=== PATIENT | female | born 1965 | race Two or more races ===

== ENCOUNTER 2018-04-18 08:14 | Inpatient (IN) | payer OTHER ==
[2018-04-18 08:26] VITALS: BMI 29.2
[2018-04-18] MEDS ORDERED: ACETAMINOPHEN 1000 MG/100 ML VIAL (NON FORMULARY) IVPB ONE (09:08)
--- NOTE | 2018-04-18 09:08 | PDOC ---
History of Present Illness - General Chief Complaint: Weakness Stated Complaint: TACHYCARDIA Time Seen by Provider: 04/18/18 08:25 History Source: Patient Exam Limitations: No Limitations - History of Present Illness Initial Comments: 04/18/18 09:02 Patient is a 53 year old female with a PMHx of HTN, HLD, Rheumatoid Arthritis, Hemorrhoids, S/P Right knee replacement (02/01/18), S/P Right knee debridement ( 04/05/18) due to infected wound of right knee (positive staph epi) w/ PICC line on IV Vanco and Rocephin who presented to the ED complaining of feeling fatigue and short of breath this morning. Patient reports she woke up this morning, had her coffee, and then all of a sudden felt extremely fatigued and couldn't "catch my breath." She took her temperature orally and reports it was 101.0 F and then took her pulse, which she reported was 123 BPM. A few minutes later, she reports getting up and almost passed out, which prompted her to call 911. Upon my initial encounter patient denies any current shortness of breath. However, she does report having right flank pain associated with frequency, which started two days ago and has not improved, despite being on IV antibiotics. Patient reports flank pain as dull, nonradiating, intermittent, exacerbated when sitting down and alleviated when standing up and moving around. Patient started IV abx 04/05/18 for a total of 6 weeks. Reports she had her vanco levels done last week, which was 11 and is suppose to have her Antibiotics changed today to Oxicillin and Rifampin. Her ID physician is Dr. Kennedy at [facility]. Patient denies any pain, drainage, erythema to the right knee. Reports that today she was suppose to see her Orthopedic for stable removal, Dr. Roly Middleton at [facility]. Patient otherwise denies any dysuria, hematuria, melena, hematochezia, hematemesis, hemoptysis, chest pain, LOC, headaches, diarrhea, constipation, abdominal pain. Patient denies immobility, anaebolic steroid use, history of blood disorders or coagulapathy. PCP: Dr. Yip Pickle Maker: Dr. Betancourt Orthopedic Surgeon: Dr. Roly Middleton ([phone]) ID: Dr. Arias at [facility] ([phone]) PMHx: HTN HLD Rheumatoid Arthritis (On prednisone) External Hemorrhoids PSHx: Right knee replacement (02/01/18) at [facility] Right Knee debridement (04/05/18) at [facility] 3 C-sections Social Hx: Works as an alumni relations coordinator Lives with her 3 kids Denies alcohol use Denies drug use Denies smoking history Family Hx: Mother- DM, HTN, hypothyroidism Medications: Losartan 50mg daily Amlodipine 5mg daily Toprol 50mg daily Simvastatin 20mg daily Zoloft 50mg daily Prednisone 2.5mg every other day Pepcid daily Meloxicam- daily for the past two weeks IV vancomycin 1500mg Q12H IV Rocephin 2mg daily ASA 81mg BID Allergies: Shellfish 04/18/18 13:35 04/18/18 14:29 Past History - Travel Traveled outside of the country in the last 30 days: No Close contact w/someone who was outside of country & ill: No - Past Medical History Allergies/Adverse Reactions: Allergies Allergy/AdvReac Type Severity Reaction Status Date / Time shellfish derived Allergy Verified 04/18/18 08:23 Home Medications: Ambulatory Orders Amlodipine Besylate 5 mg PO DAILY 04/18/18 Aspirin 81 mg PO BID 04/18/18 Ceftriaxone [Rocephin 2Gm Ivpb (Pre-Docked)] 2 gm IVPB DAILY 04/18/18 Losartan Potassium 50 mg PO DAILY 04/18/18 Meloxicam 04/18/18 Metoprolol Succinate [Toprol Xl] 50 mg PO HS 04/18/18 Sertraline HCl [Zoloft -] 50 mg PO DAILY 04/18/18 Simvastatin 20 mg PO HS 04/18/18 Vancomycin/0.9 % Sod Chloride [Vanco 1.5 gm/150 ml-0.9% NaCl] 1.5 gm IV BID predniSONE [Deltasone -] 2.5 mg PO ASDIR 04/18/18 COPD: No HTN: Yes Other medical history: Rheumaoid Arthritis - Reproductive History Is Patient Now?: No - Suicide/Smoking/Psychosocial Hx Smoking History: Never smoked Review of Systems - Review of Systems Constitutional: Yes: Fever, Weakness HEENTM: No: Blurred Vision, Hearing Loss, Throat Pain Cardiac (ROS): Yes: Lightheadedness, Palpitations. No: Chest Pain, Irregular Heart Rate, Syncope, Chest Tightness ABD/GI: No: Abdominal Distended, Abd. Pain w/ defecation, Blood Streaked Bowels , Constipated, Diarrhea, Nausea, Rectal Bleeding, Vomiting : Yes: See HPI, Frequency Musculoskeletal: No: Back Pain, Joint Swelling, Muscle Weakness, Joint Stiffness Neurological: No: Headache, Numbness, Paresthesia, Unsteady Gait Psychiatric: No: Anxiety, Depression, Frequent Crying Hematologic/Lymphatic: No: Blood Clots, Easy Bleeding, Easy Bruising, Bleeding Diathesis, Swollen Glands *Physical Exam - Vital Signs Last Vital Signs Temp Pulse Resp BP Pulse Ox 101.1 F H 123 H 16 136/88 99 04/18/18 08:39 04/18/18 08:23 04/18/18 08:23 04/18/18 08:23 04/18/18 08:23 - Physical Exam General Appearance: Yes: Nourished, Appropriately Dressed HEENT: positive: JONNATHAN, Normal ENT Inspection, Normal Voice, TMs Normal, Pharynx Normal. negative: Pale Conjunctivae, Tonsillar Exudate, Tonsillar Erythema, Nasal Congestion, Rhinorrhea, Sinus Tenderness Neck: positive: Tender, Trachea midline, Rigid, Supple. negative: Carotid bruit , Decreased range of motion Respiratory/Chest: positive: Lungs Clear, Normal Breath Sounds. negative: Crackles, Rales, Rhonchi, Stridor, Wheezing, Dullness Cardiovascular: positive: Regular Rhythm, S1, S2, Tachycardia. negative: Edema , JVD, Murmur Vascular Pulses: Dorsalis-Pedis (R): 2+, Doralis-Pedis (L): 2+ Female Pelvic Exam: negative: discharge, lesions, vaginal bleeding Gastrointestinal/Abdominal: positive: Normal Bowel Sounds, Soft. negative: Decreased BS, Distended, Guarding, Rebound, Tenderness, Hepatomegaly, Spleenomegaly Rectal Exam: positive: normal exam, normal rectal tone, hemorrhoids (external ) Musculoskeletal: positive: Normal Inspection Extremity: positive: Normal Range of Motion, Swelling, Other (Nonpitting edema of right knee, Vertical surgical incision with briana, no drainage, erythema, redness. C/D/I surgical dressing. LEft arm PICC in place C/D/I with no drainage , erythema, or swelling ). negative: Coldness, Cyanosis, Delayed Capillary Refill, Calf Tenderness, Erythema Neurologic: positive: butt sawyer II-XII NML intact, Fully Oriented, Alert, Normal Mood/ Affect, Normal Response, Motor Strength 5/5. negative: Facial Droop, Numbness, Sensory Deficit Moderate Sedation - Procedure Monitoring Vital Signs: Procedure Monitoring Vital Signs Temperature 101.1 F H 04/18/18 08:39 Pulse Rate 123 H 04/18/18 08:23 Respiratory Rate 16 04/18/18 08:23 Blood Pressure 136/88 04/18/18 08:23 O2 Sat by Pulse Oximetry (%) 99 04/18/18 08:23 ED Treatment Course - LABORATORY CBC & Chemistry Diagram: 04/18/18 08:56 04/18/18 08:56 - RADIOLOGY Radiology Studies Ordered: Category Date Time Status CHEST X-RAY PORTABLE* [RAD] Stat Radiology 04/18/18 08:59 Ordered Medical Decision Making - Medical Decision Making 04/18/18 09:34 Patient presents with Urgency, fevers, Tachycardia and meets SIRS criteria in the setting of PICC line placement and Right knee replacement with surgical briana in place. However, patient denies any discharge, pain or tenderness of both left upper arm and right knee surgical site. Differential Diagnosis include but not limited to Post op Right knee abscess/DVT , Post op pneumonia, PE, PICC line infection, UTI. Sepsis protocol initiated -Chest X-ray ordered to rule out PNA -Duplex of Right leg to rule out collection/DVT -CBC, CMP, Lactic ordered -U/A, Urine and blood cultures -Tylenol IV -1 L of IV NS -Vancomycin levels ordered 04/18/18 10:04 Urine negative CBC with normal WBC CMP unremarkable Lactic 2.4 Chest X-Ray negative for any acute pathology Duplex of right leg pending Will place call to ID and Orthopedic surgeon once Duplex is back 04/18/18 11:17 Duplex pending Additional 1L IV NS ordered 04/18/18 12:02 Duplex negative for DVT, thrombophlebitis or abscess Contacted Orthopedic Surgeon, Kane Eugene, who recommended to discharge patient and have come to his office today Contacted ID physician, Dr. Arias and left a message Awaiting Dr. Arias's call back 04/18/18 13:[address] Arias, ID physician. Reports that patient has blood cultures positive for staph epi and was planning on changing her IV Abx due to resistance from her current Regimen. He wants patient to have Oxicillin 2gm Q4H. He already sent in a prescription to her house for the medication with a CAAD. Patient reports she feels uncomfortable going home due to her fevers and tachycardia. Will give first dose of Oxicillin [employer] sent out to [facility] admitting Awaiting call back 04/18/18 14:[address] Ugalde who will come and evaluate patient Spoke to Dr. Arias again and told him that we do not have Oxicillin in house but we have Nafcillin. He is fine with Naficillin. Patient is to also start with Rifampin 300mg BID IVPB 04/18/18 14:36 One time dose of Naficillin 2gm ordered Patient accepted to [facility] *DC/Admit/Observation/Transfer Diagnosis at time of Disposition: Sepsis, Bacteremia - Discharge Dispostion Decision to Admit order: Yes - Referrals Referrals: Magdy Yip MD [Primary Care Provider] - - Patient Instructions - Post Discharge Activity
[2018-04-18] MEDS ORDERED: SODIUM CHLORIDE 1,000 ML IV STA ×2 (09:09→11:13)
[2018-04-18] MEDS ORDERED: ACETAMINOPHEN INJECTION 100 ML IVPB ONE (09:09)
[2018-04-18 09:14] LABS: BASO % 0.4 % (0-2.0); HEMATOCRIT 31.2 % (32.4-45.2); HEMOGLOBIN 10.3 GM/dL (10.7-15.3); LYMPH % 11.5 % (8-40); MCH 26.2 pg (25.7-33.7); MCHC 33.1 g/dl (32.0-36.0); MEAN CELL VOLUME 79.2 fl (80-96); MEAN PLT VOLUME 8.8 fl (7.5-11.1); MONO % 18.2 % (3.8-10.2); NEUT % 65.9 % (42.8-82.8); PLATELET COUNT 204 K/MM3 (134-434); RBC 3.95 M/mm3 (3.60-5.2); RDW 14.7 % (11.6-15.6); WHITE BLOOD COUNT 4.5 K/mm3 (4.0-10.0)
[2018-04-18 09:15] LABS: URINE APPEARANCE CLEAR; URINE BILIRUBIN NEGATIVE (<2.0 mg/dL); URINE COLOR COLORLESS; URINE GLUCOSE (UA) NEGATIVE (NEGATIVE); URINE KETONE NEGATIVE (NEGATIVE); URINE LEUK ESTERASE NEGATIVE (NEGATIVE); URINE NITRITE NEGATIVE (NEGATIVE); URINE PROTEIN NEGATIVE (NEGATIVE); URINE UROBILINOGEN NEGATIVE mg/dL (0.2-1.0)
[2018-04-18 09:30] LABS: INR 1.11 (0.83-1.09); PROTHROMBIN TIME (PATIENT) 13.1 SEC (9.7-13.0)
--- NOTE | 2018-04-18 09:31 | PDOC ---
Attending Attestation - Resident Resident Name: Hue Cruz - ED Attending Attestation I have performed the following: I have examined & evaluated the patient, The case was reviewed & discussed with the resident, I agree w/resident's findings & plan - HPI HPI: 04/18/18 09:27 53-year-old female history of right knee surgery in January status post washout on 04/05 currently on IV antibiotics via PICC line at home presents with fever and generalized weakness this morning. Only localizing symptoms are urinary frequency and urgency, has had vaginal candidiasis symptoms of last few days, otherwise denies any cardiopulmonary complaints and reports her right knee is looking better without swelling or redness or discharge. Patient was actually scheduled to have a change in her antibiotic regimen today with her ID specialist at [facility], presenting secondary to the fever. - Physicial Exam PE: 04/18/18 09:28 Rectal fever 101.1, tachycardia to 120, blood pressure otherwise normal with normal O2 sat Well-appearing and conversant, no acute distress Heart is regular tachycardia, lungs are clear Abdomen benign, no CVA tenderness Left upper extremity PICC line site is clean/dry/intact, neurovascularly intact Right lower extremity incision clean/dry/intact, soft tissue swelling but no obvious joint effusion or erythema or warmth, full range of motion and neurovascularly intact - Critical Care Time Total Critical Care Time: 30 Critical Care Statement: The care of this patient involved high complexity decision making to prevent further life threatening deterioration of the patient 's condition and/or to evaluate & treat vital organ system(s) failure or risk of failure. - Medical Decision Making 04/18/18 09:29 53-year-old female currently on antibiotics in the setting of right knee infection presents with SIRS - fever and tachycardia, symptoms localized to urinary tract, also has indwelling catheter which does not look infected externally. Blood pressure within normal limits, exam otherwise not localizing. Sepsis protocol initiated IV Tylenol for fever, awaiting workup to continue antibiotics as she currently has vancomycin and ?Rocephin on board Discuss disposition with patient's primary team at [facility] Heart Score/ECG Review #1 ECG reviewed & interpreted by me at: 09:25 General ECG Interpretation: Sinus Rhythm (tachy at 113), Normal Intervals (qtc 452), No acute ischemic changes
[2018-04-18 09:32] LABS: ACTIVATED PTT 28.8 SECONDS (25.2-36.5)
[2018-04-18 09:45] LABS: ALBUMIN 3.7 g/dl (3.4-5.0); ALK PHOS 101 U/L (45-117); ANION GAP 9 MMOL/L (8-16); BILIRUBIN,TOTAL 0.4 mg/dL (0.2-1); BLOOD UREA NITROGEN 9 mg/dL (7-18); CALCIUM 8.4 mg/dL (8.5-10.1); CHLORIDE 107 mmol/L (98-107); CO2 24 mmol/L (21-32); CREATININE 0.7 mg/dL (0.55-1.3); GLUCOSE,RANDOM 121 mg/dL (74-106); POTASSIUM 3.7 mmol/L (3.5-5.1); SGOT/AST 17 U/L (15-37); SGPT/ALT 23 U/L (13-61); SODIUM 140 mmol/L (136-145); TOT PROT 7.1 g/dl (6.4-8.2)
--- NOTE | 2018-04-18 09:47 | EKG ---
Test Reason : Blood Pressure : / mmHG Vent. Rate : 113 BPM Atrial Rate : 113 BPM P-R Int : 146 ms QRS Dur : 082 ms QT Int : 330 ms P-R-T Axes : 055 038 030 degrees QTc Int : 452 ms SINUS TACHYCARDIA LOW VOLTAGE QRS BORDERLINE ECG WHEN COMPARED WITH ECG OF 21-SEP-2005 13:58, NO SIGNIFICANT CHANGE WAS FOUND Confirmed by GHAZAL LEHMAN MD ([id number]) on 04/18/2018 9:46:57 AM Referred By: Confirmed By:GHAZAL LEHMAN MD
[2018-04-18 09:49] LABS: VENOUS PH 7.42 (7.32-7.42); VENOUS PO2 36.4 mmHg (28-48)
[2018-04-18] MEDS ORDERED: NAFCILLIN - 2 GM in DEXTROSE 5%-WATER - 100 ML IVPB ONE (14:20)
[2018-04-18] MEDS ORDERED: predniSONE 2.5 MG TABLET PO SCH (15:30)
[2018-04-18] MEDS ORDERED: SODIUM CHLORIDE 1,000 ML IV SCH (15:30)
--- NOTE | 2018-04-18 16:15 | HP ---
CHIEF COMPLAINT:Fever, shortness of breath PCP:Dr. Yip HISTORY OF PRESENT ILLNESS: Patient is a 53 year old female with past medical history of HTN, HLD, rheumatoid arthritis, hemorrhoids, s/p R knee replacement surgery (02/01/18), s/ p R knee debridement and washout (04/05/18) due to infected wound of R knee, presented with a 2-day history of fever and shortness of breath. Patient reported feeling unwell, took her temperature this morning which was 101F and checked her pulse rate which was 123. She called his son to bring her to [facility], but prior to leaving the house, patient became lightheaded and "almost passed out". They then call 911, who brought the patient to the ED. Patient is seen at [facility] for her R knee replacement. She was recently admitted for R knee wound and underwent debridement and washout (04/05/18). Wound culture was positive for Staph epidermidis. She was started on Vancomycin and Rocephin, and sent home with a PICC line (04/07/18), to continue the antibiotics for 6 weeks. Three days ago, her infectious disease doctor called her to inform her that culture and sensitivity results were available and her antibiotics were to be switched to Oxacillin and Rifampin today. She also has a scheduled follow-up with the Orthopedic surgeon for removal of sutures. Patient also reported chills, vaginal pruritus and urinary frequency. Denies pain, redness or swelling of the R knee wound and the PICC line. Denies cough, rhinorrhea, nasal congestion, sore throat, headache, chest pain, palpitations, abdominal pain, diarrhea, constipation, dysuria or vaginal discharge. ER course was notable for: (1)IV Tylenol, IV NS bolus, IV Nafcillin 2g (2)Lactic acid 2.4 --> 0.8 (3)Vanc 11.7 Recent Travel:No PAST MEDICAL HISTORY: HTN HLD rheumatoid arthritis hemorrhoids PAST SURGICAL HISTORY: R knee replacement surgery (02/01/18) R knee debridement and washout (04/05/18) 3 C-sections Social History: Smoking:denies Alcohol:denies Drugs: denies Family History: Mother - HTN, Hypothyroid, HLD, DM Allergies shellfish derived Allergy (Verified 04/18/18 08:23) HOME MEDICATIONS: Home Medications Medication Instructions Recorded Amlodipine Besylate 5 mg PO DAILY 04/18/18 Aspirin 81 mg PO BID 04/18/18 Ceftriaxone [Rocephin 2Gm Ivpb 2 gm IVPB DAILY 04/18/18 (Pre-Docked)] Losartan Potassium 50 mg PO DAILY 04/18/18 Meloxicam 04/18/18 Metoprolol Succinate [Toprol Xl] 50 mg PO HS 04/18/18 Sertraline HCl [Zoloft -] 50 mg PO DAILY 04/18/18 Simvastatin 20 mg PO HS 04/18/18 Vancomycin/0.9 % Sod Chloride 1.5 gm IV BID 04/18/18 [Vanco 1.5 gm/150 ml-0.9% NaCl] predniSONE [Deltasone -] 2.5 mg PO ASDIR 04/18/18 REVIEW OF SYSTEMS CONSTITUTIONAL: Absent: fever, chills, diaphoresis, generalized weakness, malaise, loss of appetite, weight change HEENT: Absent: rhinorrhea, nasal congestion, throat pain, throat swelling, difficulty swallowing, mouth swelling, ear pain, eye pain, visual changes CARDIOVASCULAR: Absent: chest pain, syncope, palpitations, irregular heart rate, lightheadedness , peripheral edema RESPIRATORY: Absent: cough, shortness of breath, dyspnea with exertion, orthopnea, wheezing, stridor, hemoptysis GASTROINTESTINAL: Absent: abdominal pain, abdominal distension, nausea, vomiting, diarrhea, constipation, melena, hematochezia GENITOURINARY: Absent: dysuria, frequency, urgency, hesitancy, hematuria, flank pain, genital pain MUSCULOSKELETAL: Absent: myalgia, arthralgia, joint swelling, back pain, neck pain SKIN: Absent: rash, itching, pallor HEMATOLOGIC/IMMUNOLOGIC: Absent: easy bleeding, easy bruising, lymphadenopathy, frequent infections ENDOCRINE: Absent: unexplained weight gain, unexplained weight loss, heat intolerance, cold intolerance NEUROLOGIC: Absent: headache, focal weakness or paresthesias, dizziness, unsteady gait, seizure, mental status changes, bladder or bowel incontinence PSYCHIATRIC: Absent: anxiety, depression, suicidal or homicidal ideation, hallucinations. PHYSICAL EXAMINATION Vital Signs - 24 hr 04/18/18 04/18/18 04/18/18 08:22 08:23 08:39 Temperature 99.1 F 101.1 F H Pulse Rate 123 H Respiratory 16 Rate Blood Pressure 136/88 O2 Sat by Pulse 100 99 Oximetry (%) GENERAL: Awake, alert, and fully oriented, in no acute distress. HEAD: Normal with no signs of trauma. EYES: PERRLA, EOMI, sclera anicteric, conjunctiva clear. EARS, NOSE, THROAT: Ears normal, nares patent, oropharynx clear without exudates. Dry mucous membranes. NECK: Normal range of motion, supple without lymphadenopathy, JVD, or masses. LUNGS: Breath sounds equal, clear to auscultation bilaterally. HEART: Regular rate and rhythm, normal S1 and S2 without murmur, rub or gallop. ABDOMEN: Soft, nontender, not distended, normoactive bowel sounds, no guarding, no rebound, no masses. MUSCULOSKELETAL: Normal range of motion at all joints. No bony deformities or tenderness. No CVA tenderness. UPPER EXTREMITIES: 2+ pulses, warm, well-perfused. No cyanosis. No clubbing. No peripheral edema. LUE: +PICC line, no redness or swelling. LOWER EXTREMITIES: 2+ pulses, warm, well-perfused. No calf tenderness. No peripheral edema. RLE: +clean, dry, intact wound at the anterior knee. NEUROLOGICAL: Cranial nerves II-XII intact. Motor strength 5/5 on all extremities, sensation intact. Normal speech. Normal gait. PSYCHIATRIC: Cooperative. Good eye contact. Appropriate mood and affect. SKIN: Warm, dry, normal turgor, no rashes or lesions noted, normal capillary refill. Laboratory Results - last 24 hr 04/18/18 04/18/18 04/18/18 08:56 08:56 08:56 WBC 4.5 RBC 3.95 Hgb 10.3 L Hct 31.2 L MCV 79.2 L MCH 26.2 MCHC 33.1 RDW 14.7 Plt Count 204 MPV 8.8 Absolute Neuts (auto) 3.0 Neutrophils % 65.9 Lymphocytes % 11.5 Monocytes % 18.2 H Eosinophils % 4.0 Basophils % 0.4 Nucleated RBC % 0 PT with INR 13.10 H INR 1.11 H PTT (Actin FS) 28.8 VBG pH POC VBG pCO2 POC VBG pO2 Mixed VBG HCO3 Sodium 140 Potassium 3.7 Chloride 107 Carbon Dioxide 24 Anion Gap 9 BUN 9 Creatinine 0.7 Creat Clearance w eGFR > 60 Random Glucose 121 H Lactic Acid Calcium 8.4 L Total Bilirubin 0.4 AST 17 ALT 23 Alkaline Phosphatase 101 Creatine Kinase 38 Troponin I < 0.02 Total Protein 7.1 Albumin 3.7 Urine Color Urine Appearance Urine pH Ur Specific [place] Urine Protein Urine Glucose (UA) Urine Ketones Urine Blood Urine Nitrite Urine Bilirubin Urine Urobilinogen Ur Leukocyte Esterase Random Vancomycin 04/18/18 04/18/18 04/18/18 08:56 08:56 09:36 WBC RBC Hgb Hct MCV MCH MCHC RDW Plt Count MPV Absolute Neuts (auto) Neutrophils % Lymphocytes % Monocytes % Eosinophils % Basophils % Nucleated RBC % PT with INR INR PTT (Actin FS) VBG pH 7.42 POC VBG pCO2 38.0 POC VBG pO2 36.4 Mixed VBG HCO3 24.0 Sodium Potassium Chloride Carbon Dioxide Anion Gap BUN Creatinine Creat Clearance w eGFR Random Glucose Lactic Acid 2.4 H* Calcium Total Bilirubin AST ALT Alkaline Phosphatase Creatine Kinase Troponin I Total Protein Albumin Urine Color Colorless Urine Appearance Clear Urine pH 7.0 Ur Specific [place] 1.001 L Urine Protein Negative Urine Glucose (UA) Negative Urine Ketones Negative Urine Blood Negative Urine Nitrite Negative Urine Bilirubin Negative Urine Urobilinogen Negative Ur Leukocyte Esterase Negative Random Vancomycin 04/18/18 04/18/18 09:36 12:36 WBC RBC Hgb Hct MCV MCH MCHC RDW Plt Count MPV Absolute Neuts (auto) Neutrophils % Lymphocytes % Monocytes % Eosinophils % Basophils % Nucleated RBC % PT with INR INR PTT (Actin FS) VBG pH POC VBG pCO2 POC VBG pO2 Mixed VBG HCO3 Sodium Potassium Chloride Carbon Dioxide Anion Gap BUN Creatinine Creat Clearance w eGFR Random Glucose Lactic Acid 0.8 Calcium Total Bilirubin AST ALT Alkaline Phosphatase Creatine Kinase Troponin I Total Protein Albumin Urine Color Urine Appearance Urine pH Ur Specific [place] Urine Protein Urine Glucose (UA) Urine Ketones Urine Blood Urine Nitrite Urine Bilirubin Urine Urobilinogen Ur Leukocyte Esterase Random Vancomycin 11.7 L ASSESSMENT/PLAN: Patient is a 53 year old female with past medical history of HTN, HLD, rheumatoid arthritis, hemorrhoids, s/p R knee replacement surgery (02/01/18), s/ p R knee debridement and washout (04/05/18) due to infected wound of R knee, presented with a 2-day history of fever and shortness of breath. #Sepsis likely 2/2 RLE wound vs prosthetic joint -As per Dr. Hijaz, she was able to contact Dr. Arias (ID) and was told that wound cultures were positive and plan to switch Vanc/Rocephin to Oxacillin 2g q4h and Rifampin 300mg BID. Oxacillin not available at the pharmacy, patient started on IV Nafcillin 2g q4h. -Follow-up blood and wound cultures. -ID (Dr. Lozoya) consulted. Recommendations appreciated. -IV Nafcillin 2gm q4h -IV Rifampin 300mg IV BID -IV Levaquin 500mg daily to cover for possible UTI as patient also presents with urinary frequency -Ortho (Dr. Kilgore) consulted. -IV fluids -Tylenol 650mg PRN -Keep wound clean and dry. -Echocardiogram to rule out PE/endocarditis. -Flu swab -CXR: clear lungs. No acute pathology. -Duplex (R leg) - no DVT -Will order Duplex of L leg #HTN: controlled -Continue Losartan 50mg daily -Amlodipine 5mg daily -Metoprolol 50 mg Po HS #HLD: chronic -Continue Simvastatin 20 mg PO HS #Anxiety -Continue Zoloft 50mg daily #Rheumatoid Arthritis: controlled -Continue Prednisone 2.5 mg every other day -Pepcid not available at the pharmacy -Will switch to Zantac 150mg daily for now -Tylenol 650mg PRN for pain #FEN -IV NS @ 100ml/hr -electrolytes wnl, routine bmp monitoring -Sodium-controlled diet #Prophylaxis -Lovenox 40mg sq daily -will hold ASA 81mg BID for now #Disposition -Full code -Admit to med-surg Visit type - Emergency Visit Emergency Visit: Yes ED Registration Date: 04/18/18 Care time: The patient presented to the Emergency Department on the above date and was hospitalized for further evaluation of their emergent condition. - New Patient This patient is new to me today: Yes Date on this admission: 04/18/18 - Critical Care Critical Care patient: No
--- NOTE | 2018-04-18 17:14 | PN ---
Teaching Attending Note Name of Resident: Linnea Levin ATTENDING PHYSICIAN STATEMENT I saw and evaluated the patient. I reviewed the resident's note and discussed the case with the resident. I agree with the resident's findings and plan as documented. SUBJECTIVE: CC: fever and feeling tired HPI: 53 y/o lady with h/o HTN, RA, HLp, hemorrhoids, R knee replacement on , and washout on 04/05 for infection . she presented with fever . She has not been feeling well for 2 days, gets SOB with exertion, has no CP or cough. no dysuria but noted last 2 days she has been urinating frequently. No diarrhea. she did not notice any increased pain in R knee. she reports sore throat , and mouth sores . this am , when she got up she felt light headed , so ambulance was called. she reports her HR is normally in 100-105 She has been on Vanco and ceftriaxone after her knee washout ( discharged on 04/07), she has PICC line in L arm . she was supposed to go see her ID for change of her Abx to oxacillin ( for staph epidemidis in knee ) , and was supposed to get sutures removed today. Her ID was called by ER MD , and learned that her joint cx showed staph Epi. OBJECTIVE: NAD, comfortable, cooperative and pleasant HEENT: MMM. no facial droop, EOMI, round equal pupils, reactive to light. oropharynx with no erythema or edema. small whitish lesions on R bucal mucosa . CV: RRR, no MRG Lungs: CTAB Abd: soft, NT, ND , NL BS> Ext : R LE circumference > L. no edema . surgical dressing on anterior R knee, with no surrounding erythema. DP 2+ b/l ASSESSMENT AND PLAN: 53 y/o lady with h/o HTN, RA, HLP, hemorrhoids, R knee replacement on 02/01/18, and washout on 04/05 for infection. she presented with fever . 1-Fever: source is not clear. DDX is bacteremia, knee infection, DVT. - check echo - follow blood cx form ER. - US of LLE ( RLE US neg for DVT). - US or RLE showed complex structure in popliteal area. will ask ortho to evaluate - ID consult fro guidance with Abx . - his ID was called and recommended Naficillin . 2- h/o HTN: cont meds 3- H/o RA : cont prednisone 2.5 QOD 4- DVT PX : she was on asa 81 BID after her sx. will switch to lovenox 40 daily
[2018-04-18] MEDS ORDERED: ACETAMINOPHEN 325 MG TABLET (FP) PO PRN (17:31)
[2018-04-18] MEDS: ENOXAPARIN NA (PORCINE) 40 MG/0.4 ML DISP.SYRIN SQ SCH (17:59)
[2018-04-18] MEDS: predniSONE 5 MG TABLET (UD) PO SCH (17:59)
--- NOTE | 2018-04-18 18:34 | HP ---
CHIEF COMPLAINT: SOB x 2 days PCP: Dr. Barrientos HISTORY OF PRESENT ILLNESS: 53 y/o F with PMH HTN, HLD, RA (tx with Actemra prior. 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 currently on prednisone), external hemorrhoids, s/p total R knee replacement (02/01/18; d/t narrowing jt space from RA), s/p washout and debridement d/t R knee wound infection (04/05/18)- done at [facility], who presented to the ED with SOB over the past two days. As per pt, over the last two days, she began to feel unwell with SOB, fever 101F, and tachycardia. States that she was scheduled to meet with her surgeon to have her stitches removed from her R knee at [facility], however today, felt lightheaded as if she was "about to pass out" thus her son called 911 and she was brought here via ambulance. During this time, pt also endorses vaginal pruritis, subjective chills and urinary frequency. Pt was admitted for washout and debridement at [facility], d/c on 04/07/18. At that time , she was found to have wound cx (+) for staph epidermidis and was d/c on vanc 1500mg BID and rocephin 2g IVPB qd for a total 6 week course. Pt had R PICC line placed during this admission and was completing infusions at home on own. She also had VNS services for routine CBC, trough checks. This past Wednesday, pt was called by ID team from [facility] and told that her abx management would need to be changed to oxacillin 2gm q4h and rifampin 300mg BID due to c+s. Post-op, pt to continue with SCD's for 2 weeks, asa 81mg BID for VTE ppx as per surgery. ER course was notable for: (1) IV tylenol, NS bolus (2) IV nafcillin (3) lactic 2.4>0.8 (4) vanc trough 11.7 Recent Travel: no PAST MEDICAL HISTORY: HTN HLD rheumatoid arthritis hemorrhoids PAST SURGICAL HISTORY: R knee replacement surgery (02/01/18) R knee debridement and washout (04/05/18) 3 C-sections Social History: Smoking: denies Alcohol: denies Drugs: denies Family History: Mother - HTN, Hypothyroid, HLD, DM Allergies shellfish derived Allergy (Verified 04/18/18 08:23) - hives HOME MEDICATIONS: Home Medications Medication Instructions Recorded Amlodipine Besylate 5 mg PO DAILY 04/18/18 Aspirin 81 mg PO BID 04/18/18 Ceftriaxone [Rocephin 2Gm Ivpb 2 gm IVPB DAILY 04/18/18 (Pre-Docked)] Losartan Potassium 50 mg PO DAILY 04/18/18 Meloxicam 04/18/18 Metoprolol Succinate [Toprol Xl] 50 mg PO HS 04/18/18 Sertraline HCl [Zoloft -] 50 mg PO DAILY 04/18/18 Simvastatin 20 mg PO HS 04/18/18 Vancomycin/0.9 % Sod Chloride 1.5 gm IV BID 04/18/18 [Vanco 1.5 gm/150 ml-0.9% NaCl] predniSONE [Deltasone -] 2.5 mg PO ASDIR 04/18/18 REVIEW OF SYSTEMS CONSTITUTIONAL: +chills Absent: fever, diaphoresis, generalized weakness, malaise, loss of appetite, weight change HEENT: Absent: rhinorrhea, nasal congestion, throat pain, throat swelling, difficulty swallowing, mouth swelling, ear pain, eye pain, visual changes CARDIOVASCULAR: Absent: chest pain, syncope, palpitations, irregular heart rate, lightheadedness , peripheral edema RESPIRATORY: +SOB Absent: cough, dyspnea with exertion, orthopnea, wheezing, stridor, hemoptysis GASTROINTESTINAL: Absent: abdominal pain, abdominal distension, nausea, vomiting, diarrhea, constipation, melena, hematochezia GENITOURINARY: Absent: dysuria, frequency, urgency, hesitancy, hematuria, flank pain, genital pain MUSCULOSKELETAL: Absent: myalgia, arthralgia, joint swelling, back pain, neck pain SKIN: Absent: rash, itching, pallor HEMATOLOGIC/IMMUNOLOGIC: Absent: easy bleeding, easy bruising, lymphadenopathy, frequent infections ENDOCRINE: Absent: unexplained weight gain, unexplained weight loss, heat intolerance, cold intolerance NEUROLOGIC: Absent: headache, focal weakness or paresthesias, dizziness, unsteady gait, seizure, mental status changes, bladder or bowel incontinence PSYCHIATRIC: Absent: anxiety, depression, suicidal or homicidal ideation, hallucinations. PHYSICAL EXAMINATION Vital Signs 04/18/18 04/18/18 04/18/18 08:22 08:23 08:39 Temperature 99.1 F 101.1 F H Pulse Rate 123 H Pulse Rate [ Apical] Respiratory 16 Rate Blood Pressure 136/88 Blood Pressure [Right Arm] O2 Sat by Pulse 100 99 Oximetry (%) 04/18/18 04/18/18 16:20 17:43 Temperature 99.5 F 99.5 F Pulse Rate 104 H Pulse Rate [ 101 H Apical] Respiratory 18 18 Rate Blood Pressure Blood Pressure 135/71 [Right Arm] O2 Sat by Pulse 99 Oximetry (%) GENERAL: Pleasant. Awake, alert, and fully oriented, in no acute distress. HEAD: Normal with no signs of trauma. EYES: Pupils equal, round and reactive to light, extraocular movements intact, sclera anicteric, conjunctiva clear. EARS, NOSE, THROAT: Ears normal, nares patent, oropharynx clear without exudates. Dry mucous membranes; with tongue coating. NECK: Normal range of motion, supple without lymphadenopathy LUNGS: Breath sounds equal, clear to auscultation bilaterally. No wheezes, and no crackles. No accessory muscle use. HEART: +sinus tach, normal S1 and S2 without murmur, rub or gallop. ABDOMEN: Soft, obese, nontender, not distended, normoactive bowel sounds MUSCULOSKELETAL: Normal range of motion at all joints. +R knee: adhesive dressing, with sutures without erythema or edema. without TTP. Good ROM. +SCD's b/l. without peripheral edema EXTREMITIES: +RUE- PICC . Without erythema or TTP. NEUROLOGICAL: Cranial nerves II-XII intact. Normal speech. 2+ L patellar, +R bicep. sensation intact PSYCHIATRIC: Cooperative. Good eye contact. SKIN: Warm, dry Laboratory Results - last 24 hr 04/18/18 04/18/18 04/18/18 08:56 08:56 08:56 WBC 4.5 RBC 3.95 Hgb 10.3 L Hct 31.2 L MCV 79.2 L MCH 26.2 MCHC 33.1 RDW 14.7 Plt Count 204 MPV 8.8 Absolute Neuts (auto) 3.0 Neutrophils % 65.9 Lymphocytes % 11.5 Monocytes % 18.2 H Eosinophils % 4.0 Basophils % 0.4 Nucleated RBC % 0 PT with INR 13.10 H INR 1.11 H PTT (Actin FS) 28.8 VBG pH POC VBG pCO2 POC VBG pO2 Mixed VBG HCO3 Sodium 140 Potassium 3.7 Chloride 107 Carbon Dioxide 24 Anion Gap 9 BUN 9 Creatinine 0.7 Creat Clearance w eGFR > 60 Random Glucose 121 H Lactic Acid Calcium 8.4 L Total Bilirubin 0.4 AST 17 ALT 23 Alkaline Phosphatase 101 Creatine Kinase 38 Troponin I < 0.02 Total Protein 7.1 Albumin 3.7 Urine Bilirubin 04/18/18 04/18/18 08:56 12:36 Lactic Acid 2.4 H* 0.8 ASSESSMENT/PLAN: 53 y/o F with PMH HTN, HLD, RA (tx with Actemra prior. 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 currently on prednisone), external hemorrhoids, s/p total R knee replacement (02/01/18; d/t narrowing jt space from RA), s/p washout and debridement d/t R knee wound infection (04/05/18)- done at [facility], who presented to the ED with SOB over the past two days. #Sepsis 2/2 likely R TKR jt infection -with recent R knee debridement, washout. initially on IV vanc, rocephin however with resistance on c+s to change abx as per [facility] ID -will start nafcillin, rifampin as per ID recs. -f/u blood, urine, wound cx. -will follow TTE, to r/o endocarditis. follow blood cx if with bacteremia, then may need escalation to [facility] -ortho, ID consult #Possible UTI -UA (-), however with urinary frequency. f/u Ucx -started on levaquin. f/u EKG . current Qtc 452ms #fever -RLE DVT r/o reveals popliteal cyst. however f/u LLE U/S to r/o L DVT -will also check flu swab to r/o further infectious etiology #HTN- currently controlled -c/w losartan, amlodipine, metoprolol #HLD -c/w simvastatin #RA -c/w prednisone 2.5mg PO q48hrs -do not stop, avoid adrenal crisis -used Actemra in past. was d/c after dx with joint infection -c/w PPI while on steroids #F/E/N IV NS 100 cc/hr continue to follow lytes na controlled diet #PPX -c/w SCD's, lovenox (switched from asa) #Dispo monitoring on med-surg Visit type - Emergency Visit Emergency Visit: Yes ED Registration Date: 04/18/18 Care time: The patient presented to the Emergency Department on the above date and was hospitalized for further evaluation of their emergent condition. - New Patient This patient is new to me today: Yes Date on this admission: 04/18/18 - Critical Care Critical Care patient: No
--- NOTE | 2018-04-18 18:55 | PN ---
Progress Note (short form) - Note Progress Note: ID Consult dictated Fever/ tachycardia R/O sepsis Urinary frequency /UTI Infected R TKR on IV antibiotics Await c/s Nafcillin/ rifampin per patient's ID MD Swanson for empiric coverage UTI pending c/s
[2018-04-18] MEDS: ATORVASTATIN CA 10 MG TABLET (FP) PO SCH (21:28)
[2018-04-18] MEDS ORDERED: ASPIRIN 81 MG CHEWABLE TABLETS PO SCH (22:00)
[2018-04-18] MEDS: NAFCILLIN - 2 GM in DEXTROSE 5%-WATER - 100 ML IVPB SCH (22:19)
[2018-04-18] MEDS: RIFAMPIN IVPB SCH (23:26)
[2018-04-18] MEDS: SODIUM CHLORIDE IVPB SCH (23:26)
--- NOTE | 2018-04-19 00:46 | CONS ---
DATE OF CONSULTATION: DATE OF DICTATION: 04/18/2018 INFECTIOUS DISEASE CONSULTATION HISTORY OF PRESENT ILLNESS: The patient is a 53-year-old female evaluated for fever. She underwent a right total knee replacement on February 01, 2018. Her postoperative course was complicated by an infected prosthesis. She required a return to the operating room for right knee debridement and washout on April 05, 2018. She was discharged with a PICC line on IV vancomycin and ceftriaxone. Additional details regarding cultures are not available at this time; however, according to the notes, the patient was informed by her infectious disease oracle ascp consultant at [facility] that operative cultures were positive for staphylococcus epidermidis, and the decision was made to change her to oxacillin and rifampin. In the interim, she developed fever to 101 and tachycardia. She also complained of some right flank pain and urinary frequency for 2 days prior to admission. She denied any dysuria or hematuria, however did have frequent urination. On initial evaluation in the emergency room, urinalysis was negative. Patient was noted to have fever 101.1 with a normal white blood cell count and elevated lactic acid level. No complaints of chest pain, shortness of breath, cough or sputum production. No vomiting or diarrhea. No pain or erythema at the PICC line site. She denies any ill contacts. She has not received influenza vaccine. PAST MEDICAL HISTORY: Positive for hypertension, hyperlipidemia, rheumatoid arthritis. ALLERGIES: No known drug allergies. MEDICATION: Include losartan, amlodipine, Toprol, simvastatin, Zoloft, prednisone, Pepcid, vancomycin and ceftriaxone. SOCIAL HISTORY: Resides in the community. Nonsmoker. Nondrinker. SYSTEMS REVIEW: Neurologic: No loss of consciousness, seizure activity, focal weakness. Cardiac: Negative for chest pain or palpitations. Respiratory: Negative for cough or sputum production. Gastrointestinal: Negative vomiting or diarrhea. Genitourinary: As per HPI. LABORATORY DATA: White count 4.5, hematocrit 31.2, platelet count 204, creatinine 0.7, lactic acid 2.4. Urine leukocyte esterase negative. Cultures are pending. Chest x-ray negative for acute infiltrate. PHYSICAL EXAMINATION: General: On exam, she is awake and alert. She is not acutely toxic appearing. Vital signs: Temperature 101.1, blood pressure 136/88, pulse 123 regular, respirations 18 per minute. HEENT: Sclerae anicteric. Cardiovascular: Heart sounds S1, S2. Lungs: Clear bilaterally. Abdomen: Soft, nontender. Extremities: 1+ edema. There is a surgical dressing present over the right patella. PICC line is present in the left upper extremity. There is no erythema or tenderness noted. IMPRESSION: 1. Fever, tachycardia. Rule out sepsis. 2. Urinary frequency, probable urinary tract infection. 3. Infected right total knee replacement on intravenous antibiotic therapy. 4. Lactic acidosis. Await cultures. Will continue nafcillin and rifampin as per infectious disease oracle ascp consultant at [facility]. Will add Levaquin for empiric coverage of gram-negative urinary tract pathogens pending. Culture results will follow. Thank you for the kind referral. SATISH GODOY M.D. [id number]
[2018-04-19] MEDS ORDERED: PT OWN MED DRAWER 7, Y5N ONE ×5 (01:46→21:12)
[2018-04-19] MEDS: NAFCILLIN - 2 GM in DEXTROSE 5%-WATER - 100 ML IVPB SCH ×6 (01:48→23:51)
[2018-04-19 07:26] LABS: BASO % 1.1 % (0-2.0); EOS % 2.2 % (0-4.5); HEMOGLOBIN 8.5 GM/dL (10.7-15.3); LYMPH % 37.8 % (8-40); MCH 25.1 pg (25.7-33.7); MCHC 31.3 g/dl (32.0-36.0); MEAN CELL VOLUME 80.2 fl (80-96); MEAN PLT VOLUME 8.4 fl (7.5-11.1); MONO % 22.6 % (3.8-10.2); NEUT % 36.3 % (42.8-82.8); PLATELET COUNT 152 K/MM3 (134-434); RBC 3.37 M/mm3 (3.60-5.2); RDW 14.1 % (11.6-15.6); WHITE BLOOD COUNT 3.4 K/mm3 (4.0-10.0)
[2018-04-19 07:55] LABS: ANION GAP 7 MMOL/L (8-16); BLOOD UREA NITROGEN 8 mg/dL (7-18); CALCIUM 7.9 mg/dL (8.5-10.1); CHLORIDE 111 mmol/L (98-107); CO2 24 mmol/L (21-32); CREATININE 0.5 mg/dL (0.55-1.3); GLUCOSE,RANDOM 108 mg/dL (74-106); MAGNESIUM 2.3 mg/dL (1.8-2.4); POTASSIUM 3.7 mmol/L (3.5-5.1); SODIUM 142 mmol/L (136-145)
[2018-04-19] MEDS: ENOXAPARIN NA (PORCINE) 40 MG/0.4 ML DISP.SYRIN SQ SCH (09:11)
[2018-04-19] MEDS: RANITIDINE HCL 150 MG TABLET (FP) PO SCH (09:12)
[2018-04-19] MEDS: LOSARTAN POTASSIUM 50 MG TABLET (FP) PO SCH (09:12)
[2018-04-19] MEDS: amLODIPine BESYLATE 5 MG TABLET (FP) PO SCH (09:15)
[2018-04-19] MEDS: SERTRALINE HCL 50 MG TABLET (FP) PO SCH (09:56)
[2018-04-19] MEDS: SODIUM CHLORIDE IVPB SCH ×2 (09:56→22:08)
[2018-04-19] MEDS: RIFAMPIN IVPB SCH ×2 (09:56→22:08)
[2018-04-19 10:55] LABS: ACANTHOCYTES 0; ANISOCYTOSIS 0; HELMET CELLS 0; HOWELL-JOLLY BODIES 0; MACROCYTOSIS 0; OVALOCYTE 0; ROULEAU 0; SICKELED CELLS 0; TARGET CELLS 0; TEAR DROP CELLS 0; TOXIC GRANULATION 0
[2018-04-19 11:36] LABS: PLATELET ESTIMATE ADEQUATE
--- NOTE | 2018-04-19 13:33 | PN ---
Physical Exam: SUBJECTIVE: Patient seen and examined at bedside this morning. Patient reported headache and nasal congestion that started last night. Otherwise denies fever, chills, chest pain, SOB, abdominal pain, diarrhea, constipation, dysuria. Flu swab done and patient was noted to have clear nasal discharge. OBJECTIVE: Vital Signs Period Temp Pulse Resp BP Sys/Smith Pulse Ox Last 24 Hr 97.9 F-99.6 F 99-108 18-20 122-163/71-92 99 GENERAL: Awake, alert, and fully oriented, in no acute distress. HEAD: Normal with no signs of trauma. EYES: PERRLA, EOMI, sclera anicteric, conjunctiva clear. EARS, NOSE, THROAT: Ears normal, nares patent, +clear nasal discharge, oropharynx clear without exudates. NECK: Normal range of motion, supple without lymphadenopathy, JVD, or masses. LUNGS: Breath sounds equal, clear to auscultation bilaterally. HEART: Regular rate and rhythm, normal S1 and S2 without murmur, rub or gallop. ABDOMEN: Soft, nontender, not distended, normoactive bowel sounds, no guarding, no rebound, no masses. MUSCULOSKELETAL: Normal range of motion at all joints. No bony deformities or tenderness. No CVA tenderness. UPPER EXTREMITIES: 2+ pulses, warm, well-perfused. No cyanosis. No clubbing. No peripheral edema. LUE: +PICC line, no redness or swelling. LOWER EXTREMITIES: 2+ pulses, warm, well-perfused. No calf tenderness. No peripheral edema. RLE: +clean, dry, intact wound at the anterior knee. NEUROLOGICAL: Cranial nerves II-XII intact. Motor strength 5/5 on all extremities, sensation intact. Normal speech. Normal gait. PSYCHIATRIC: Cooperative. Good eye contact. Appropriate mood and affect. SKIN: Warm, dry, normal turgor, no rashes or lesions noted, normal capillary refill. Laboratory Results - last 24 hr 04/19/18 04/19/18 04/19/18 06:15 06:15 07:53 WBC 3.4 L RBC 3.37 L Hgb 8.5 L Hct 27.0 L MCV 80.2 MCH 25.1 L MCHC 31.3 L RDW 14.1 Plt Count 152 D MPV 8.4 Absolute Neuts (auto) 1.2 L Neutrophils % 36.3 L D Neutrophils % (Manual) 28.6 L Band Neutrophils % 10.2 Lymphocytes % 37.8 D Lymphocytes % (Manual) 39.8 Monocytes % 22.6 H Monocytes % (Manual) 17 H Eosinophils % 2.2 Eosinophils % (Manual) 3.1 Basophils % 1.1 Basophils % (Manual) 1.0 Myelocytes % (Man) 0 Promyelocytes % (Man) 0 Blast Cells % (Manual) 0 Nucleated RBC % 0 Metamyelocytes 0 Hypochromia 0 Toxic Granulation 0 Dohle Bodies 0 Platelet Estimate Adequate Polychromasia 0 Poikilocytosis 0 Basophilic Stippling 0 Anisocytosis 0 Microcytosis 0 Macrocytosis 0 Spherocytes 0 Sickle Cells 0 Target Cells 0 Tear Drop Cells 0 Ovalocytes 0 Stomatocytes 0 Helmet Cells 0 [place] Bodies 0 [place] Rings 0 [place] Cells 0 Acanthocytes (Spur) 0 Rouleaux 0 Fragmented RBCs 0 Schistocytes 0 Sodium 142 Potassium 3.7 Chloride 111 H Carbon Dioxide 24 Anion Gap 7 L BUN 8 Creatinine 0.5 L Creat Clearance w eGFR > 60 Random Glucose 108 H Calcium 7.9 L Phosphorus 4.0 Magnesium 2.3 Influenza A (Rapid) Negative Influenza B (Rapid) Negative Active Medications Generic Name Dose Route Start Last Admin Trade Name Freq PRN Reason Stop Dose Admin Acetaminophen 650 mg 04/18/18 17:31 04/19/18 01:42 Tylenol - PO 650 mg Q6H PRN Administration FEVER Amlodipine Besylate 5 mg 04/19/18 10:00 04/19/18 09:15 Norvasc - PO 5 mg DAILY ROGER Administration Atorvastatin Calcium 10 mg 04/18/18 22:00 04/18/18 21:28 Lipitor - PO 10 mg HS ROGER Administration Enoxaparin Sodium 40 mg 04/18/18 16:30 04/19/18 09:11 Lovenox - SQ 40 mg DAILY ROGER Administration Nafcillin Sodium 2 gm/ 100 mls @ 100 mls/hr 04/18/18 22:00 04/19/18 09:11 Dextrose IVPB 100 mls/hr Q4H-IV ROGER Administration Protocol Levofloxacin 500 mg in 100 mls @ 100 mls/hr 04/18/18 19:15 04/19/18 09:12 Levaquin 500 Mg Premixed Ivpb - IVPB 100 mls/hr DAILY ROGER Administration Protocol Rifampin 300 mg/ Sodium 250 mls @ 166.667 mls/hr 04/18/18 22:00 04/19/18 09: 56 Chloride IVPB 166.667 mls/hr BID ROGER Administration Losartan Potassium 50 mg 04/19/18 10:00 04/19/18 09:12 Cozaar - PO 50 mg DAILY ROGER Administration Metoprolol Succinate 50 mg 04/18/18 22:00 04/18/18 21:28 Toprol Xl - PO 50 mg HS ROGER Administration Prednisone 2.5 mg 04/18/18 16:45 04/18/18 17:59 Deltasone - PO 2.5 mg Q2D@1000 ROGER Administration Ranitidine HCl 150 mg 04/19/18 10:00 04/19/18 09:12 Zantac - PO 150 mg DAILY ROGER Administration Sertraline HCl 50 mg 04/19/18 10:00 04/19/18 09:56 Zoloft - PO 50 mg DAILY ROGER Administration ASSESSMENT/PLAN: Patient is a 53 year old female with past medical history of HTN, HLD, rheumatoid arthritis, hemorrhoids, s/p R knee replacement surgery (02/01/18), s/ p R knee debridement and washout (04/05/18) due to infected wound of R knee, presented with a 2-day history of fever and shortness of breath. #Sepsis likely 2/2 URTI vs RLE wound vs R prosthetic joint -As per Dr. Cruz, she was able to contact Dr. Arias (ID) and was told that wound cultures were positive and plan to switch Vanc/Rocephin to Oxacillin 2g q4h and Rifampin 300mg BID. Oxacillin not available at the pharmacy, patient started on IV Nafcillin 2g q4h. -Follow-up blood and wound cultures. -ID (Dr. Lozoya) consulted. Recommendations appreciated. -IV Nafcillin 2gm q4h -IV Rifampin 300mg IV BID -IV Levaquin discontinued at Urine c/s is negative -IV fluids discontinued. -Tylenol 650mg PRN -Keep wound clean and dry. -Echocardiogram - RV normal size, RV systolic function normal, LV hyperdynamic, RA mildly dilated, mild mitral annular calcification, trace MR, mild TR, insufficient TR detected to calculate RV systolic pressure, mild AR, no pericardial effusion -Flu swab - negative -CXR: clear lungs. No acute pathology. -Duplex (R leg) - no DVT. A complex popliteal fossa cyst is noted measuring 8x3cm containing extensive intraluminal debris and/or soft tissue component. -Duplex of L leg - no DVT. Sparks's cyst in the left popliteal fossa measuring 3.2x1.4cm -Ortho (Dr. Kilgore) consulted. Recommendations appreciated. -Patient will need to follow-up with surgeon at [facility] -Antibiotics as per ID #HTN: controlled -Continue Losartan 50mg daily -Amlodipine 5mg daily -Metoprolol 50 mg Po HS #HLD: chronic -Continue Simvastatin 20 mg PO HS #Anxiety -Continue Zoloft 50mg daily #Rheumatoid Arthritis: controlled -Continue Prednisone 2.5 mg every other day -Pepcid not available at the pharmacy -Will switch to Zantac 150mg daily for now -Tylenol 650mg PRN for pain #FEN -IV NS discontinued. -Encourage increased oral fluid intake. -electrolytes wnl, routine bmp monitoring -Sodium-controlled diet #Prophylaxis -Lovenox 40mg sq daily -will hold ASA 81mg BID for now #Disposition -Full code -med-surg Visit type - Emergency Visit Emergency Visit: Yes ED Registration Date: 04/18/18 Care time: The patient presented to the Emergency Department on the above date and was hospitalized for further evaluation of their emergent condition. - New Patient This patient is new to me today: Yes Date on this admission: 04/19/18 - Critical Care Critical Care patient: No
--- NOTE | 2018-04-19 13:56 | PN ---
Teaching Attending Note Name of Resident: Linnea Levin ATTENDING PHYSICIAN STATEMENT I saw and evaluated the patient. I reviewed the resident's note and discussed the case with the resident. I agree with the resident's findings and plan as documented. SUBJECTIVE: No fever or chills. No abd pain. has runny nose . OBJECTIVE: NAD, comfortable, tearful CV: RRR, no MRG Lungs: CTAB Ext : R LE circumference > L. no edema . surgical dressing on anterior R knee, with no surrounding erythema. DP 2+ b/l ASSESSMENT AND PLAN: 53 y/o lady with h/o HTN, RA, HLP, hemorrhoids, R knee replacement on 02/01/18, and washout on 04/05 for infection. she presented with fever . 1-Fever: likely URI. no signs of wound infection. - follow blood cx. - flu neg - echo pending - US neg - ortho consult pending . complex cyst in R popliteal area. - cont Naficillin and rifampin . - urine cx neg, will ask ID if levaquin can be dc 2- h/o HTN: cont meds 3- H/o RA : cont prednisone 2.5 QOD 4- DVT PX : lovenox 40 daily
--- NOTE | 2018-04-19 15:02 | CON.ORTH ---
Consult Reason for Consultation:: right septic TKR - Past Medical History ...: No - Alcohol/Substance Use Hx Alcohol Use: No - Smoking History Smoking history: Never smoked Home Medications - Allergies Allergies/Adverse Reactions: Allergies Allergy/AdvReac Type Severity Reaction Status Date / Time shellfish derived Allergy Verified 04/18/18 08:23 - Home Medications Home Medications: Ambulatory Orders Amlodipine Besylate 5 mg PO DAILY 04/18/18 Aspirin 81 mg PO BID 04/18/18 Ceftriaxone [Rocephin 2Gm Ivpb (Pre-Docked)] 2 gm IVPB DAILY 04/18/18 Losartan Potassium 50 mg PO DAILY 04/18/18 Meloxicam 04/18/18 Metoprolol Succinate [Toprol Xl] 50 mg PO HS 04/18/18 Sertraline HCl [Zoloft -] 50 mg PO DAILY 04/18/18 Simvastatin 20 mg PO HS 04/18/18 Vancomycin/0.9 % Sod Chloride [Vanco 1.5 gm/150 ml-0.9% NaCl] 1.5 gm IV BID predniSONE [Deltasone -] 2.5 mg PO ASDIR 04/18/18 Physical Exam for Ortho Vital Signs: Vital Signs Temperature 98.8 F 04/19/18 14:18 Pulse Rate 104 H 04/19/18 14:18 Respiratory Rate 18 04/19/18 14:18 Blood Pressure 139/74 04/19/18 14:18 O2 Sat by Pulse Oximetry (%) 99 04/18/18 16:20 Labs: CBC, BMP 04/19/18 06:15 04/19/18 06:15 INR, PTT INR 1.11 (0.83-1.09) H 04/18/18 08:56 - Lower Extremity Knee: Yes: Right, Other (incision healing well, sutures in place, mild ttp, rom 0-90, calf soft, nt, nvi) Assessment/Plan 53 year old female with past medical history of HTN, HLD, rheumatoid arthritis, hemorrhoids, s/p R knee replacement surgery (02/01/18), s/p R knee debridement, washout, poly exchange (04/05/18) due to infected wound of R knee, presented with a 2-day history of fever and shortness of breath. Patient reported feeling unwell, took her temperature this morning which was 101F and checked her pulse rate which was 123. She called her son to bring her to [facility], but prior to leaving the house, patient became lightheaded and "almost passed out". Pt has been on IV abx since operation. a/p- Right septic TKR s/p I&D with poly exchange Risks and benefits were d/w pt in detail Pt will need to follow-up with surgeon at [facility] Abx as per ID will follow d/w Dr. Kilgore
[2018-04-19 15:23] LABS: HEMATOCRIT 28.7 % (32.4-45.2); HEMOGLOBIN 9.6 GM/dL (10.7-15.3); MCH 26.6 pg (25.7-33.7); MCHC 33.5 g/dl (32.0-36.0); MEAN CELL VOLUME 79.4 fl (80-96); MEAN PLT VOLUME 8.4 fl (7.5-11.1); PLATELET COUNT 186 K/MM3 (134-434); RBC 3.61 M/mm3 (3.60-5.2); RDW 14.4 % (11.6-15.6); WHITE BLOOD COUNT 4.3 K/mm3 (4.0-10.0)
--- NOTE | 2018-04-19 15:49 | ECHO ---
Name: ALMA JARRETT Exam:Adult Echocardiogram Study Date: 04/19/2018 08:23 AM Age: 53 yrs Reason For Study: Evaluate Right Heart Strain Height: 67 in Weight: 187 lb BSA: 2.0 m2 MMode/2D Measurements & Calculations IVSd: 0.84 cm Ao root diam: 2.6 cm LVIDd: 4.0 cm ACS: 1.9 cm LVIDs: 2.8 cm LVPWd: 1.1 cm EDV(Teich): 68.8 ml LVOT diam: 2.1 cm ESV(Teich): 29.2 ml Doppler Measurements & Calculations Med Peak E' Micheal: 13.7 cm/sec Lat Peak E' Micheal: 13.5 cm/sec Procedure A two-dimensional transthoracic echocardiogram with color flow and Doppler was performed. The patient was in normal sinus rhythm during the exam. The patient was in a tachycardic rhythm during the exam. Left Ventricle The left ventricle is normal in size. Ejection Fraction = 60-65%. The left ventricle is hyperdynamic. Right Ventricle The right ventricle is normal size. The right ventricular systolic function is normal. Atria The left atrial size is normal. The right atrium is mildly dilated. Mitral Valve The mitral valve is normal. There is mild mitral annular calcification. There is trace mitral regurgi tation. Tricuspid Valve The tricuspid valve is not well visualized. The tricuspid valve is not well visualized, but is grossl y normal. There is mild tricuspid regurgitation. There was insufficient TR detected to calculate RV systolic pr essure. Aortic Valve The aortic valve is normal in structure and function. The aortic valve opens well. Mild aortic regurg itation. Pulmonic Valve The pulmonic valve is not well seen, but is grossly normal. There is no pulmonic valvular regurgitati on. Great Vessels The aortic root is normal size. Pericardium/Pleura There is no pericardial effusion. Interpretation Summary The right ventricle is normal size. The right ventricular systolic function is normal. The left ventricle is hyperdynamic. The right atrium is mildly dilated. There is mild mitral annular calcification. There is trace mitral regurgitation. There is mild tricuspid regurgitation. There was insufficient TR detected to calculate RV systolic pressure. Mild aortic regurgitation. There is no pericardial effusion. MD Julio Cesar Arana 04/19/2018 03:48 PM
--- NOTE | 2018-04-19 16:23 | EKG ---
Test Reason : Blood Pressure : / mmHG Vent. Rate : 098 BPM Atrial Rate : 098 BPM P-R Int : 156 ms QRS Dur : 088 ms QT Int : 342 ms P-R-T Axes : 053 032 029 degrees QTc Int : 436 ms NORMAL SINUS RHYTHM NORMAL ECG Confirmed by MD LULU, KIT ([id number]) on 04/19/2018 4:23:36 PM Referred By: Stacy GRAVES Confirmed By:KIT LAWSON MD
--- NOTE | 2018-04-19 18:12 | RAPID ---
Physical Examination Vital Signs: Vital Signs Temperature 98.8 F 04/19/18 14:18 Pulse Rate 104 H 04/19/18 14:18 Respiratory Rate 18 04/19/18 14:18 Blood Pressure 139/74 04/19/18 14:18 O2 Sat by Pulse Oximetry (%) 99 04/18/18 16:20 Labs: CBC, BMP 04/19/18 14:45 04/19/18 06:15 Rapid Response - Rapid Response Assessment: Rapid response called. Pt reported feeling palpitations and heart rate was noted in the 140s. Arrived to evaluate pt. Not complaining of any chest pain or SOB. Currently only complaint is some chills. Alert and oriented, mild distress CTA b/l without tachypnea Tachycardic, regular rythm A/P EKG revealed Sinus Tachycardia CBC, BMP, Troponin Toprol XL 50 mg PO given early Xanax 1 mg PO Once NS @ 100 cc/hr Transfer to telemetry Primary team aware
[2018-04-19] MEDS ORDERED: ALPRAZolam 0.25 MG TABLET PO ONE (18:13)
[2018-04-19] MEDS ORDERED: METOPROLOL TARTRATE 5 MG/5 ML VIAL IVPUSH ONE (18:15)
[2018-04-19 18:38] LABS: BASO % 1.3 % (0-2.0); EOS % 2.5 % (0-4.5); HEMATOCRIT 27.2 % (32.4-45.2); HEMOGLOBIN 9.2 GM/dL (10.7-15.3); LYMPH % 40.5 % (8-40); MCH 26.4 pg (25.7-33.7); MCHC 33.7 g/dl (32.0-36.0); MEAN CELL VOLUME 78.3 fl (80-96); MEAN PLT VOLUME 8.5 fl (7.5-11.1); MONO % 15.1 % (3.8-10.2); NEUT % 40.6 % (42.8-82.8); PLATELET COUNT 207 K/MM3 (134-434); RBC 3.47 M/mm3 (3.60-5.2); RDW 14.8 % (11.6-15.6); WHITE BLOOD COUNT 4.6 K/mm3 (4.0-10.0)
[2018-04-19 19:02] LABS: ANION GAP 10 MMOL/L (8-16); BLOOD UREA NITROGEN 12 mg/dL (7-18); CALCIUM 8.6 mg/dL (8.5-10.1); CHLORIDE 108 mmol/L (98-107); CO2 23 mmol/L (21-32); CREATININE 0.7 mg/dL (0.55-1.3); GLUCOSE,RANDOM 147 mg/dL (74-106); POTASSIUM 3.5 mmol/L (3.5-5.1); SODIUM 141 mmol/L (136-145)
[2018-04-19] MEDS: SODIUM CHLORIDE 1,000 ML IV SCH (19:16)
[2018-04-19] MEDS: ATORVASTATIN CA 10 MG TABLET (FP) PO SCH (22:08)
[2018-04-20] MEDS: NAFCILLIN - 2 GM in DEXTROSE 5%-WATER - 100 ML IVPB SCH ×5 (03:12→17:18)
[2018-04-20] MEDS ORDERED: PT OWN MED DRAWER 7, Y5N ONE ×3 (05:56→17:17)
[2018-04-20 06:43] LABS: HEMATOCRIT 25.8 % (32.4-45.2); HEMOGLOBIN 8.5 GM/dL (10.7-15.3); MCH 26.2 pg (25.7-33.7); MCHC 33.1 g/dl (32.0-36.0); MEAN CELL VOLUME 79.3 fl (80-96); MEAN PLT VOLUME 8.5 fl (7.5-11.1); PLATELET COUNT 188 K/MM3 (134-434); RBC 3.25 M/mm3 (3.60-5.2); RDW 14.2 % (11.6-15.6); WHITE BLOOD COUNT 3.7 K/mm3 (4.0-10.0)
[2018-04-20 07:18] LABS: ANION GAP 7 MMOL/L (8-16); BLOOD UREA NITROGEN 8 mg/dL (7-18); CALCIUM 7.9 mg/dL (8.5-10.1); CHLORIDE 112 mmol/L (98-107); CO2 25 mmol/L (21-32); CREATININE 0.5 mg/dL (0.55-1.3); GLUCOSE,RANDOM 93 mg/dL (74-106); MAGNESIUM 2.2 mg/dL (1.8-2.4); PHOSPHOROUS 4.3 mg/dL (2.5-4.9); POTASSIUM 3.9 mmol/L (3.5-5.1); SODIUM 144 mmol/L (136-145)
--- NOTE | 2018-04-20 08:27 | PN ---
Teaching Attending Note Name of Resident: Linnea Levin ATTENDING PHYSICIAN STATEMENT I saw and evaluated the patient. I reviewed the resident's note and discussed the case with the resident. I agree with the resident's findings and plan as documented. SUBJECTIVE: Patient is feeling better with no acute distress, no nausea or vomiting, no shortness of breath. No fever or chills. OBJECTIVE: Vital Signs Temperature 97.7 F 04/20/18 05:00 Pulse Rate 93 H 04/20/18 05:00 Respiratory Rate 04/20/18 05:00 Blood Pressure 121/73 04/20/18 05:00 O2 Sat by Pulse Oximetry (%) 99 04/18/18 16:20 GENERAL: Awake, alert, and fully oriented, in no acute distress. HEAD: Normal with no signs of trauma. EYES: PERRLA, EOMI, sclera anicteric, conjunctiva clear. EARS, NOSE, THROAT: Ears normal, oropharynx clear without exudates. NECK: Normal range of motion, supple without lymphadenopathy, JVD, or masses. LUNGS: Breath sounds equal, clear to auscultation bilaterally. HEART: Regular rate and rhythm, normal S1 and S2 without murmur, rub or gallop. ABDOMEN: Soft, nontender, not distended, normoactive bowel sounds, no guarding, no rebound, no masses. EXTREMITIES: 2+ pulses, warm, No peripheral edema. LUE: PICC line, no redness or swelling. RLE: dry, intact clean wound. NEUROLOGICAL: Cranial nerves II-XII intact. Motor strength 5/5 on all extremities, sensation intact. Normal speech. PSYCHIATRIC: Cooperative. Good eye contact. Appropriate mood and affect. SKIN: Warm, dry, normal turgor, no rashes or lesions noted, normal capillary refill. CBCD WBC 4.6 K/mm3 (4.0-10.0) 04/19/18 18:15 RBC 3.47 M/mm3 (3.60-5.2) L 04/19/18 18:15 Hgb 9.2 GM/dL (10.7-15.3) L 04/19/18 18:15 Hct 27.2 % (32.4-45.2) L 04/19/18 18:15 MCV 78.3 fl (80-96) L 12/18/18 18:15 MCHC 33.7 g/dl (32.0-36.0) 04/19/18 18:15 RDW 14.8 % (11.6-15.6) 04/19/18 18:15 Plt Count 207 K/MM3 (134-434) 04/19/18 18:15 MPV 8.5 fl (7.5-11.1) 04/19/18 18:15 CMP Sodium 144 mmol/L (136-145) 04/20/18 05:30 Potassium 3.9 mmol/L (3.5-5.1) 04/20/18 05:30 Chloride 112 mmol/L (98-107) H 04/20/18 05:30 Carbon Dioxide 25 mmol/L (21-32) 04/20/18 05:30 Anion Gap 7 MMOL/L (8-16) L 04/20/18 05:30 BUN 8 mg/dL (7-18) 04/20/18 05:30 Creatinine 0.5 mg/dL (0.55-1.3) L 04/20/18 05:30 Creat Clearance w eGFR > 60 (>60) 04/20/18 05:30 Random Glucose 93 mg/dL (74-106) 04/20/18 05:30 Calcium 7.9 mg/dL (8.5-10.1) L 04/20/18 05:30 Total Bilirubin 0.4 mg/dL (0.2-1) 04/18/18 08:56 AST 17 U/L (15-37) 04/18/18 08:56 ALT 23 U/L (13-61) 04/18/18 08:56 Alkaline Phosphatase 101 U/L (45-117) 04/18/18 08:56 Total Protein 7.1 g/dl (6.4-8.2) 04/18/18 08:56 Albumin 3.7 g/dl (3.4-5.0) 04/18/18 08:56 CARDIAC ENZYMES Creatine Kinase 38 IU/L (26-192) 04/18/18 08:56 Troponin I < 0.02 ng/ml (0.00-0.05) 04/19/18 18:15 Current Medications Generic Name Dose Route Start Last Admin Trade Name Freq PRN Reason Stop Dose Admin Acetaminophen 650 mg 04/18/18 17:31 04/19/18 01:42 Tylenol - PO 650 mg Q6H PRN Administration FEVER Amlodipine Besylate 5 mg 04/19/18 10:00 04/19/18 09:15 Norvasc - PO 5 mg DAILY ROGER Administration Atorvastatin Calcium 10 mg 04/18/18 22:00 04/19/18 22:08 Lipitor - PO 10 mg HS ROGER Administration Enoxaparin Sodium 40 mg 04/18/18 16:30 04/19/18 09:11 Lovenox - SQ 40 mg DAILY ROGER Administration Nafcillin Sodium 2 gm/ 100 mls @ 100 mls/hr 04/18/18 22:00 04/20/18 06:56 Dextrose IVPB 100 mls/hr Q4H-IV ROGER Administration Protocol Rifampin 300 mg/ Sodium 250 mls @ 166.667 mls/hr 04/18/18 22:00 04/19/18 22: 08 Chloride IVPB 166.667 mls/hr BID ROGER Administration Sodium Chloride 1,000 mls @ 100 mls/hr 04/19/18 18:15 04/19/18 19:16 Normal Saline - IV 100 mls/hr ASDIR ROGER Administration Losartan Potassium 50 mg 04/19/18 10:00 04/19/18 09:12 Cozaar - PO 50 mg DAILY ROGER Administration Metoprolol Succinate 50 mg 04/18/18 22:00 04/19/18 22:32 Toprol Xl - PO Not Given HS ROGER Prednisone 2.5 mg 04/18/18 16:45 04/18/18 17:59 Deltasone - PO 2.5 mg Q2D@1000 ROGER Administration Ranitidine HCl 150 mg 04/19/18 10:00 04/19/18 09:12 Zantac - PO 150 mg DAILY ROGER Administration Sertraline HCl 50 mg 04/19/18 10:00 04/19/18 09:56 Zoloft - PO 50 mg DAILY ROGER Administration Home Medications Medication Instructions Recorded Amlodipine Besylate 5 mg PO DAILY 04/18/18 Aspirin 81 mg PO BID 04/18/18 Ceftriaxone [Rocephin 2Gm Ivpb 2 gm IVPB DAILY 04/18/18 (Pre-Docked)] Losartan Potassium 50 mg PO DAILY 04/18/18 Meloxicam 04/18/18 Metoprolol Succinate [Toprol Xl] 50 mg PO HS 04/18/18 Sertraline HCl [Zoloft -] 50 mg PO DAILY 04/18/18 Simvastatin 20 mg PO HS 04/18/18 Vancomycin/0.9 % Sod Chloride 1.5 gm IV BID 04/18/18 [Vanco 1.5 gm/150 ml-0.9% NaCl] predniSONE [Deltasone -] 2.5 mg PO ASDIR 04/18/18 Microbiology 04/18/18 09:36 Blood - Peripheral Venous Blood Culture - Preliminary NO GROWTH OBTAINED AFTER 48 HOURS, INCUBATION TO CONTINUE FOR 3 DAYS. 04/18/18 08:56 Blood - Peripheral Venous Blood Culture - Preliminary NO GROWTH OBTAINED AFTER 48 HOURS, INCUBATION TO CONTINUE FOR 3 DAYS. 04/18/18 08:56 Urine - Urine Clean Catch Urine Culture - Final NO GROWTH OBTAINED ASSESSMENT AND PLAN: Patient is a 53yo female with Pmhx of HTN, RA, HLP, hemorrhoids, R knee replacement on 02/01/18, and washout on 04/05 for infection. she presented to the ED with fever . 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 Patient will follow with the ID doctor at [facility]. all the infusion Antibiotics are arrenged by [facility] medical horace. #Fever: resolved . Cxs are negative so far, US neg , ortho consult appreciated, On Oxacillin and rifampin as per ID continue. # complex cyst in R popliteal area. # h/o HTN: cont meds # H/o RA : cont prednisone 2.5mg QOD DVT PX : lovenox 40 daily
[2018-04-20] MEDS: predniSONE 5 MG TABLET (UD) PO SCH (10:24)
[2018-04-20] MEDS: LOSARTAN POTASSIUM 50 MG TABLET (FP) PO SCH (10:24)
[2018-04-20] MEDS: ENOXAPARIN NA (PORCINE) 40 MG/0.4 ML DISP.SYRIN SQ SCH (10:25)
[2018-04-20] MEDS: amLODIPine BESYLATE 5 MG TABLET (FP) PO SCH (10:26)
[2018-04-20] MEDS: RANITIDINE HCL 150 MG TABLET (FP) PO SCH (10:26)
[2018-04-20] MEDS: SERTRALINE HCL 50 MG TABLET (FP) PO SCH (10:26)
[2018-04-20] MEDS: RIFAMPIN IVPB SCH (11:00)
[2018-04-20] MEDS: SODIUM CHLORIDE IVPB SCH (11:00)
--- NOTE | 2018-04-20 11:41 | PN ---
Progress Note, Physician History of Present Illness: Awake, alert No c/o knee pain No fever/ chills Cultures negative - Current Medication List Current Medications: Active Medications Acetaminophen (Tylenol -) 650 mg PO Q6H PRN PRN Reason: FEVER Last Admin: 04/19/18 01:42 Dose: 650 mg Amlodipine Besylate (Norvasc -) 5 mg PO DAILY [facility] Last Admin: 04/20/18 10:26 Dose: 5 mg Atorvastatin Calcium (Lipitor -) 10 mg PO HS [facility] Last Admin: 04/19/18 22:08 Dose: 10 mg Enoxaparin Sodium (Lovenox -) 40 mg SQ DAILY [facility] Last Admin: 04/20/18 10:25 Dose: 40 mg Nafcillin Sodium 2 gm/ (Dextrose) 100 mls @ 100 mls/hr IVPB Q4H-IV ROGER; Protocol Last Admin: 04/20/18 10:26 Dose: 100 mls/hr Rifampin 300 mg/ Sodium (Chloride) 250 mls @ 166.667 mls/hr IVPB BID [facility] Last Admin: 04/19/18 22:08 Dose: 166.667 mls/hr Sodium Chloride (Normal Saline -) 1,000 mls @ 100 mls/hr IV ASDIR [facility] Last Admin: 04/19/18 19:16 Dose: 100 mls/hr Losartan Potassium (Cozaar -) 50 mg PO DAILY [facility] Last Admin: 04/20/18 10:24 Dose: 50 mg Metoprolol Succinate (Toprol Xl -) 50 mg PO HS [facility] Last Admin: 04/19/18 22:32 Dose: Not Given Prednisone (Deltasone -) 2.5 mg PO Q2D@1000 [facility] Last Admin: 04/20/18 10:24 Dose: 2.5 mg Ranitidine HCl (Zantac -) 150 mg PO DAILY [facility] Last Admin: 04/20/18 10:26 Dose: 150 mg Sertraline HCl (Zoloft -) 50 mg PO DAILY [facility] Last Admin: 04/20/18 10:26 Dose: 50 mg - Objective Vital Signs: Vital Signs Temperature 98.4 F 04/20/18 10:00 Pulse Rate 103 H 04/20/18 10:00 Respiratory Rate 18 04/20/18 10:00 Blood Pressure 118/70 04/20/18 10:00 O2 Sat by Pulse Oximetry (%) 99 04/18/18 16:20 Constitutional: Yes: No Distress Eyes: Yes: Conjunctiva Clear Cardiovascular: Yes: Regular Rate and Rhythm, S1, S2 Respiratory: Yes: CTA Bilaterally Gastrointestinal: Yes: Normal Bowel Sounds, Soft. No: Tenderness Extremities: Yes: Other (surgical dressing in place R knee) Labs: CBC, BMP 04/20/18 05:30 04/20/18 05:30 INR, PTT INR 1.11 (0.83-1.09) H 04/18/18 08:56 Assessment/Plan Fever resolved Infected R TKR Cultures negative Patient to follow up with [facility] ID Dr Arias as outpatient
--- NOTE | 2018-04-20 11:52 | PN ---
Progress Note (short form) - Note Progress Note: Ortho Pt seen and examined s/p right TKR I&D by another surgeon Selected Entries 04/20/18 10:00 Temperature 98.4 F Pulse Rate 103 H Respiratory 18 Rate Blood Pressure 118/70 Laboratory Tests 04/20/18 05:30 WBC 3.7 L Hgb 8.5 L Hct 25.8 L Plt Count 188 dressing c/d/i, rom 0-90, calf soft, nt nvi a/p Sutures to be removed by her surgeon abx as per ID Pt will f/u with surgeon upon d/c d/w Dr. Kilgore
--- NOTE | 2018-04-20 13:58 | DS ---
Physical Exam: SUBJECTIVE: Patient seen and examined at bedside this morning. Patient reported to have palpitations last night, called the nurse and was noted to be tachycardic at 140s. EKG showed sinus tachycardia. She was given her Toprol 50mg dose earlier, as well as Xanax 1mg, and was transferred to [facility]. Patient since then has been stable, maintaining pulse rate at 70s when asleep and 90s when awake, as her baseline. This morning, patient admitted to being stressed over things at home yesterday which made her more anxious, and has not been having any sleep because of the noise from her room mate. When she was transferred to [facility] last night, she reported having slept well and woke up feeling well. OBJECTIVE: Vital Signs Period Temp Pulse Resp BP Sys/Smith Pulse Ox Last 24 Hr 97.7 F-99.2 F 93-140 18-18 114-162/68-77 PHYSICAL EXAM GENERAL: Awake, alert, and fully oriented, in no acute distress. HEAD: Normal with no signs of trauma. EYES: PERRLA, EOMI, sclera anicteric, conjunctiva clear. EARS, NOSE, THROAT: Ears normal, nares patent, +clear nasal discharge, oropharynx clear without exudates. NECK: Normal range of motion, supple without lymphadenopathy, JVD, or masses. LUNGS: Breath sounds equal, clear to auscultation bilaterally. HEART: Regular rate and rhythm, normal S1 and S2 without murmur, rub or gallop. ABDOMEN: Soft, nontender, not distended, normoactive bowel sounds, no guarding, no rebound, no masses. MUSCULOSKELETAL: Normal range of motion at all joints. No bony deformities or tenderness. No CVA tenderness. UPPER EXTREMITIES: 2+ pulses, warm, well-perfused. No cyanosis. No clubbing. No peripheral edema. LUE: +PICC line, no redness or swelling. LOWER EXTREMITIES: 2+ pulses, warm, well-perfused. No calf tenderness. No peripheral edema. RLE: +clean, dry, intact wound at the anterior knee. NEUROLOGICAL: Cranial nerves II-XII intact. Motor strength 5/5 on all extremities, sensation intact. Normal speech. Normal gait. PSYCHIATRIC: Cooperative. Good eye contact. Appropriate mood and affect. SKIN: Warm, dry, normal turgor, no rashes or lesions noted, normal capillary refill. LABS Laboratory Results - last 24 hr 04/19/18 04/19/18 04/19/18 14:45 18:03 18:15 WBC 4.3 4.6 RBC 3.61 3.47 L Hgb 9.6 L 9.2 L Hct 28.7 L 27.2 L MCV 79.4 L 78.3 L MCH 26.6 26.4 MCHC 33.5 33.7 RDW 14.4 14.8 Plt Count 186 D 207 MPV 8.4 8.5 Absolute Neuts (auto) 1.9 Neutrophils % 40.6 L Lymphocytes % 40.5 H Monocytes % 15.1 H Eosinophils % 2.5 Basophils % 1.3 Nucleated RBC % 0 Sodium Potassium Chloride Carbon Dioxide Anion Gap BUN Creatinine Creat Clearance w eGFR POC Glucometer 141 Random Glucose Calcium Phosphorus Magnesium Troponin I 04/19/18 04/20/18 04/20/18 18:15 05:30 05:30 WBC 3.7 L RBC 3.25 L Hgb 8.5 L Hct 25.8 L MCV 79.3 L MCH 26.2 MCHC 33.1 RDW 14.2 Plt Count 188 MPV 8.5 Absolute Neuts (auto) Neutrophils % Lymphocytes % Monocytes % Eosinophils % Basophils % Nucleated RBC % Sodium 141 144 Potassium 3.5 3.9 Chloride 108 H 112 H Carbon Dioxide 23 25 Anion Gap 10 7 L BUN 12 8 Creatinine 0.7 0.5 L Creat Clearance w eGFR > 60 > 60 POC Glucometer Random Glucose 147 H 93 Calcium 8.6 7.9 L Phosphorus 4.3 Magnesium 2.2 Troponin I < 0.02 HOSPITAL COURSE: Date of Admission:04/18/18 Date of Discharge: 04/20/18 Patient is a 53 year old female with past medical history of HTN, HLD, rheumatoid arthritis, hemorrhoids, s/p R knee replacement surgery (02/01/18), s/ p R knee debridement and washout (04/05/18) due to infected wound of R knee, presented with a 2-day history of fever and shortness of breath. Upon arrival , patient was noted to be tachycardic at 120s. Sepsis work-up done. ID and Ortho consulted. Patient was started on IV Nafcillin and IV Rifampin as per her ID doctor from [facility]. Patient also reported nasal congestion and rhinorrhea. Flu swab done was negative. Cultures came out negative and patient was discharged with instructions to continue her IV antibiotics through her PICC line and follow up with her PCP, ID and Ortho at [facility]. Discharge Summary Reason For Visit: BACTEREMIA/SEPSIS Current Active Problems Bacteremia (Acute) Sepsis (Acute) Condition: Stable - Instructions Diet, Activity, Other Instructions: You were seen because you had fever and shortness of breath. You also reported to have palpitations and noted to have fast heart rate. Lab tests were negative of any concerns. Blood cultures did not show any infection in your blood. Ultrasound of your heart was done and was normal. As per your infectious disease doctor, Dr. Arias, we have switched your antibiotics. Continue the following antibiotics as prescribed: 1. Oxacillin 2gm every 4 hours. 2. Rifampin 300mg every 12 hours. Continue all your other medications as prescribed Please follow-up with your infectious disease doctor, Dr. Arias within 1 week. Follow-up with your orthopedic surgeon, Dr. Middleton within 1 week for removal of your sutures. 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 Ultrasound of your right leg showed a popliteal cyst. It is important that you follow-up with your doctors to have this further addressed. Call 911 or go to the ED if with any worsening fever, chills, palpitations, shortness of breath, chest pain, nausea, vomiting or any new concerns noted. Referrals: Suki Betancourt MD [Staff Physician] - 1 Week Magdy Yip MD [Primary Care Provider] - 1 Week Disposition: HOME - Home Medications Comprehensive Discharge Medication List: Ambulatory Orders Amlodipine Besylate 5 mg PO DAILY 04/18/18 Aspirin 81 mg PO BID 04/18/18 Losartan Potassium 50 mg PO DAILY 04/18/18 Metoprolol Succinate [Toprol Xl] 50 mg PO HS 04/18/18 Sertraline HCl [Zoloft -] 50 mg PO DAILY 04/18/18 Simvastatin 20 mg PO HS 04/18/18 predniSONE [Deltasone -] 2.5 mg PO ASDIR 04/18/18 Acetaminophen [Tylenol .Regular Strength -] 650 mg PO Q6H PRN tablet 04/20/18 Ranitidine [Zantac -] 150 mg PO DAILY tablet 04/20/18
[2018-04-20] MEDS: SODIUM CHLORIDE 1,000 ML IV SCH (17:19)
[2018-04-20 20:15] VITALS: BP 120/73; PULSE 100; TEMP 98
--- NOTE | 2018-04-21 12:05 | EKG ---
Test Reason : Blood Pressure : / mmHG Vent. Rate : 129 BPM Atrial Rate : 129 BPM P-R Int : 130 ms QRS Dur : 078 ms QT Int : 316 ms P-R-T Axes : 076 056 025 degrees QTc Int : 462 ms SINUS TACHYCARDIA NONSPECIFIC ST AND T WAVE ABNORMALITY ABNORMAL ECG WHEN COMPARED WITH ECG OF 19-APR-2018 10:23, NON-SPECIFIC CHANGE IN ST SEGMENT IN INFERIOR LEADS ST NOW DEPRESSED IN ANTERIOR LEADS NONSPECIFIC T WAVE ABNORMALITY NOW EVIDENT IN ANTEROLATERAL LEADS Confirmed by BERNARD DUVAL MD ([id number]) on 04/21/2018 12:04:29 PM Referred By: Confirmed By:BERNARD DUVAL MD
== END 2018-04-20 19:32 | disposition home health service (06) | DRG 722 ==
LOC: SUPCPDRO 08:14 → JER 08:14 → JERBED 14:44 → OBSVTOIN 15:20 → J7W 16:46 → J4W 04-19 21:13
PROVIDERS: ADMIT Internal Medicine; ATTEND Internal Medicine
DX: R50.9 Fever, unspecified (principal); I10 Essential (primary) hypertension; E78.5 Hyperlipidemia, unspecified; T84.53XA Infection and inflammatory reaction due to internal right knee prosthesis, initial encounter; M06.9 Rheumatoid arthritis, unspecified; F41.9 Anxiety disorder, unspecified; R35.0 Frequency of micturition; K64.4 Residual hemorrhoidal skin tags; A41.89 Other specified sepsis; M71.21 Synovial cyst of popliteal space [Baker], right knee; R00.2 Palpitations; R06.02 Shortness of breath; E87.2 Acidosis
CPT/HCPCS: 36415; 71045-TC-FY; 80048; 80053; 81003; 82550; 82803; 82962; 83605; 83735; 84100; 84484; 85025; 85027; 85610; 85730; 87040; 87086; 87804; 93005; 93010; 93306-TC; 93971-TC; 97116-GP; 97161-GP; 99284-25; G0378; G0480; J0131; J7030

== ENCOUNTER → 2024-11-01 | Day surgery (SDC) | payer BC | END | disposition home or self-care (01) | LOC: JRADIR 10:46 | PROVIDERS: ATTEND Internal Medicine Endocrinology, Diabetes & Metabolism | PROC: 0G9G3ZX Drainage of Left Thyroid Gland Lobe, Percutaneous Approach, Diagnostic (ICD-10-PCS; principal; 2024-11-01) | DX: E04.1 Nontoxic single thyroid nodule (principal) | CPT/HCPCS: 10005; 76942; 88173; 88305-TC ==